=== PATIENT | female | born 1995 | race Caucasian/White ===

== ENCOUNTER 2016-03-07 02:32 | Emergency (ER) | payer BC ==
[~2016-03-07] VITALS: Ht 172.7 cm; Wt 89.4 kg
[~2016-03-07 02:32] MED LIST: ALBUTEROL SULF8.5 GM IH; CALCIUM500 M4 PO; CHROMAGEN,1 CAPSULE PO; CLARITIN10 MG PO; ENDOCET 5-3251 EACH PO; GEODON60 MG PO; IBUPROFEN800 MG PO; KLONOPIN1 MG PO; LEXAPRO20 MG PO; NOHOMEMEDS; PRENA1 CHEW TA1.4 MG PO
[2016-03-07 03:14] LABS: HEMATOCRIT 36.5 % (36.0-46.0); MCH 29.4 PG (29.0-34.0); MCHC 33.7 G/DL (30.0-36.0); MCV 87.1 FL (83-99); MEAN PLAT.VOLUME 10.4 uM^3 (9.5-12.4); PLATELET COUNT 213 K/uL (156-360); RBC DIS.WIDTH-CV 13.3 % (11.8-14.6); RBC DIS.WIDTH-SD 41.2 % (39-53); RED BLOOD COUNT 4.19 M/uL (3.80-5.20); WHITE BLOOD COUNT 9.9 K/uL (4.1-10.2)
[2016-03-07 03:23] LABS: D-DIMER ELISA 0.38 mg/L FEU (< 0.57)
[2016-03-07 03:24] LABS: CHLORIDE 105 mEq/L (99-109); POTASSIUM 3.7 mEq/L (3.7-5.4); SODIUM 139 mEq/L (136-147)
[2016-03-07 03:26] LABS: GLUCOSE 102 mg/dL (70-99)
[2016-03-07 03:27] LABS: ANION GAP 11 MEQ/L (2-14)
[2016-03-07 03:29] LABS: GFR ESTIMATE (CALCULATED) > 59 mL/min/
[2016-03-07 03:30] LABS: UREA NITROGEN (BUN) 10 mg/dL (9-23)
[2016-03-07 03:34] LABS: ADD MIUA? YES; BILIRUBIN NEGATIVE; BLOOD NEGATIVE; COLOR YELLOW ((YELLOW)); GLUCOSE (STRIP) NEGATIVE; KETONES NEGATIVE; LEUKOCYTES MODERATE; NITRITE NEGATIVE; PH, URINE 6.5 (5-8); PROTEIN (STRIP) NEGATIVE; UROBILINOGEN 0.2 MG/DL (0.2-1.0)
[2016-03-07 03:48] LABS: BACTERIA 2+; CASTS PRESENT /LPF; CRYSTALS NONE SEEN; EPITHELIAL CELLS 1+; FINE GRANULAR CASTS 0-5 /LPF; MUCUS NONE SEEN; RED BLOOD CELLS 0-5 /HPF (0-5); UCUL ADDED? YES
[2016-03-07] MEDS ORDERED: KEFLEX500 MG PO (04:03)
[2016-03-07] MEDS ORDERED: PREDNISONE20 MG PO (04:03)
[2016-03-07 04:47] VITALS: BP 143/85
== END 2016-03-07 04:52 | disposition home or self-care (01) ==
LOC: EME 02:32
PROVIDERS: Physician Assistant
DX: R07.9 Chest pain, unspecified (principal); N39.0 Urinary tract infection, site not specified
CPT/HCPCS: 80048; 81003; 84702; 85027; 85379; 87086; 93005; 99281; 99285; J7512

== ENCOUNTER 2016-10-26 15:26 | Outpatient (CLI) | payer OTHER ==
[~2016-10-26] VITALS: Ht 172.7 cm; Wt 87.3 kg
[~2016-10-26 15:26] MED LIST changes: +KEFLEX500 MG PO; +PREDNISONE20 MG PO
[2016-10-26 15:39] VITALS: BP 127/72
[2016-10-26 15:40] VITALS: BP 127/72
[2016-10-26] MEDS ORDERED: PRENATAL TABLE1 EAC3 PO (16:15)
[2016-10-26] MEDS ORDERED: IRON325 M1 PO (16:16)
[2016-10-26] MEDS ORDERED: VENTOLIN HFA18 GM IH (16:17)
[2016-10-26 17:01] VITALS: BP 136/84
== END 2016-10-26 18:30 | disposition home or self-care (01) ==
LOC: LDRP-OP 15:26 → 2WEST 15:27 → LDRP-OP 12-12 14:34
DX: O47.1 False labor at or after 37 completed weeks of gestation (principal); Z3A.37 37 weeks gestation of pregnancy
CPT/HCPCS: 59025; G0378

== ENCOUNTER 2016-10-27 10:52 | Inpatient (IN) | payer OTHER ==
[~2016-10-27] VITALS: Ht 172.7 cm; Wt 87.1 kg
[2016-10-27] VITALS (25 sets, daily range): BP systolic 108–142; BP diastolic 58–84
[~2016-10-27 10:52] MED LIST changes: +IRON325 M1 PO; +PRENATAL TABLE1 EAC3 PO; +VENTOLIN HFA18 GM IH
[2016-10-27 12:23] LABS: EOSINOPHIL (%) 0.9 % (0-5); EOSINOPHIL COUNT 0.1 K/uL (0-0.3); HEMATOCRIT 34.2 % (36.0-46.0); IMMATURE GRANULOCYTE (%) 0.3 % (0.0-0.7); INSTRUMENT ABS NEUTROPHIL CT 4.5 K/uL; LYMPHOCYTE COUNT 1.2 K/uL (1.0-2.8); MCH 30.5 PG (29.0-34.0); MCHC 33.9 G/DL (30.0-36.0); MEAN PLAT.VOLUME 11.5 uM^3 (9.5-12.4); MONOCYTE COUNT 0.5 K/uL (0-0.8); NEUTROPHIL COUNT 4.5 K/uL (1.8-6.4); PLATELET COUNT 176 K/uL (156-360); RBC DIS.WIDTH-CV 14.6 % (11.8-14.6); RBC DIS.WIDTH-SD 47.1 % (39-53); WHITE BLOOD COUNT 6.3 K/uL (4.1-10.2)
[2016-10-28 08:00] VITALS: BP 118/79
[2016-10-28 15:00] VITALS: BP 130/80
[2016-10-29 08:21] VITALS: BP 123/78
[2016-10-29] MEDS ORDERED: MOTRIN800 MG PO (11:55)
== END 2016-10-29 13:34 | disposition home or self-care (01) | DRG 775 ==
LOC: LDRP-OP 10:52 → 2WEST 10:53 → LDRP-OP 12-12 18:47
PROVIDERS: Obstetrics & Gynecology
PROC: 10E0XZZ Delivery of Products of Conception, External Approach (ICD-10-PCS; principal; 2016-10-27)
PROC: 00HU33Z Insertion of Infusion Device into Spinal Canal, Percutaneous Approach (ICD-10-PCS; principal; 2016-10-27)
PROC: 3E0R3CZ (ICD-10-PCS; principal; 2016-10-27)
DX: O42.02 Full-term premature rupture of membranes, onset of labor within 24 hours of rupture (principal); O34.211 Maternal care for low transverse scar from previous cesarean delivery; Z3A.37 37 weeks gestation of pregnancy; Z37.0 Single live birth
CPT/HCPCS: 85025; C1755; J7120

== ENCOUNTER 2016-11-02 21:41 | Emergency (ER) | payer OTHER ==
[~2016-11-02] VITALS: Ht 172.7 cm; Wt 81.1 kg
[~2016-11-02 21:41] MED LIST changes: +MOTRIN800 MG PO
[2016-11-02 22:49] LABS: HEMATOCRIT 35.8 % (36.0-46.0); MCH 29.6 PG (29.0-34.0); MCV 89.7 FL (83-99); MEAN PLAT.VOLUME 11.2 uM^3 (9.5-12.4); PLATELET COUNT 180 K/uL (156-360); RBC DIS.WIDTH-CV 14.5 % (11.8-14.6); RBC DIS.WIDTH-SD 47.4 % (39-53); RED BLOOD COUNT 3.99 M/uL (3.80-5.20); WHITE BLOOD COUNT 9.2 K/uL (4.1-10.2)
[2016-11-02 22:57] LABS: CHLORIDE 108 mEq/L (99-109); POTASSIUM 3.6 mEq/L (3.7-5.4); SODIUM 139 mEq/L (136-147)
[2016-11-02 22:59] LABS: GLUCOSE 94 mg/dL (70-99)
[2016-11-02 23:01] LABS: ANION GAP 9 MEQ/L (2-14); TOTAL BILIRUBIN 0.3 mg/dL (0.0-1.0)
[2016-11-02 23:03] LABS: ALKALINE PHOSPHATASE 229 IU/L (3-129); GFR ESTIMATE (CALCULATED) > 59 mL/min/
[2016-11-02 23:04] LABS: UREA NITROGEN (BUN) 10 mg/dL (9-23)
[2016-11-02 23:13] LABS: ADD MIUA? YES; BILIRUBIN NEGATIVE; BLOOD MODERATE; COLOR YELLOW ((YELLOW)); GLUCOSE (STRIP) NEGATIVE; KETONES NEGATIVE; LEUKOCYTES TRACE; NITRITE NEGATIVE; PROTEIN (STRIP) NEGATIVE; SPECIFIC GRAVITY 1.017 (1.000-1.030); UROBILINOGEN 0.2 MG/DL (0.2-1.0)
[2016-11-02 23:14] LABS: QUANTITATIVE HCG 254.9 MIU/ML
[2016-11-02 23:19] LABS: BACTERIA RARE /HPF; EPITHELIAL CELLS RARE /HPF; MUCUS TRACE /LPF; RED BLOOD CELLS 0-5 /HPF (0-5); UCUL ADDED? NO; WHITE BLOOD CELLS 0-5 /HPF (0-5)
[2016-11-03 01:50] VITALS: BP 161/87
== END 2016-11-03 01:52 | disposition home or self-care (01) ==
LOC: RME 21:41 → EME 21:41 → RME 11-03 01:52
DX: O72.1 Other immediate postpartum hemorrhage (principal); R10.30 Lower abdominal pain, unspecified; M54.9 Dorsalgia, unspecified; R50.9 Fever, unspecified; R11.0 Nausea; R19.7 Diarrhea, unspecified
CPT/HCPCS: 76856; 80053; 81003; 84702; 85027; 99281; 99283